=== PATIENT | female | born 1960 | race Caucasian/White ===

== ENCOUNTER → 2021-07-10 | Outpatient (CLI) | payer BC ==
[~2021-07-10] MED LIST: CEPHALEXIN500 M1 PO; DOXYCYCLINE PO; MOTRIN 400400 MG/TAB PO
== END ==
LOC: MC.RAD 09:30
DX: Z12.31 Encounter for screening mammogram for malignant neoplasm of breast (principal)

== ENCOUNTER 2022-07-17 13:30 | Outpatient (RCR) | payer BC ==
[~2022-07-17 13:30] MED LIST changes: +ALEVE LIQCAPS PO; +CYMBALTA 30MG30 MG PO; +MULTI VITAMINS1 TAB PO
== END 2022-07-18 | disposition home or self-care (01) ==
LOC: WSPT
DX: M54.16 Radiculopathy, lumbar region (principal)

== ENCOUNTER 2022-08-12 13:30 | Outpatient (RCR) | payer BC | END 2022-08-17 | disposition home or self-care (01) | LOC: WSPT | DX: M54.10 Radiculopathy, site unspecified (principal) ==

== ENCOUNTER → 2023-05-25 | Outpatient (CLI) | payer BC | LOC: COL.RAD 14:45 | DX: R93.89 Abnormal findings on diagnostic imaging of other specified body structures (principal) ==